=== PATIENT | female | born 1985 | race Caucasian/White ===

== ENCOUNTER 2017-01-30 09:41 | Inpatient (IN) | payer OTHER ==
[2017-01-30] MEDS ORDERED: LIDOCAINE HCL 50 ML VIAL PERI PRN (09:54)
[2017-01-30] MEDS ORDERED: RINGERS SOLUTION,LACTATED 1,000 ML IV ONE (09:54)
[2017-01-30] MEDS ORDERED: PENICILLIN G POTASSIUM 5 MILLIONUNT in DEXTROSE 5 % IN WATER 100 ML IV ONE ×2 (09:54)
[2017-01-30] MEDS ORDERED: ONDANSETRON HCL/PF 2 MG/ML VIAL IV PRN ×2 (09:54→12:40)
[2017-01-30] MEDS ORDERED: OXYTOCIN/DEXTROSE 5%-WATER 30 UNITS/500 ML BAG IV ONE ×2 (09:54→21:36)
[2017-01-30 10:11] LABS: Hematocrit 36.9 % (37.0-47.0); Hemoglobin 12.5 gm/dL (12.5-16.0); Mean Cell Volume 86.4 fl (78-100); Mean Corpuscular Hemoglobin 29.3 pg (27-31); Mean Corpuscular Hgb Conc 33.9 g/dl (32-36); Mean Platelet Volume 9.6 fl (6.0-9.5); Neutrophil % 75.5 % (42-75.0); Platelet Count 125 K/mm3 (150-450); Red Blood Count 4.27 M/mm3 (4.2-5.4); Red Cell Distribution Width 13.8 % (11.5-14.0); White Blood Count 9.3 K/mm3 (4.0-10.5)
[2017-01-30 10:30] LABS: Albumin * 2.7 gm/dl (3.4-5.0); Anion Gap 14.1 mmol/L (6.8-13.8); BUN/Creatinine Ratio 8.8 (9.0-21.6); Bilirubin, Total 0.4 mg/dL (0.0-1.1); Ca. Corrected For Albumin 9.3 mg/dL (8.4-10.2); Calcium * 8.6 mg/dL (7.9-10.9); Carbon Dioxide 21.6 mmol/L (24-32.6); Potassium 3.7 mmol/L (3.4-4.6); Total Protein 6.8 gm/dL (6.2-8.2)
[2017-01-30 10:38] LABS: Random Urine Total Protein 31.7 mg/dL (0-12)
[2017-01-30] MEDS: DEXTROSE 5%-LACTATED RINGERS 1,000 ML IV PRN ×2 (10:42→19:13)
[2017-01-30] MEDS ORDERED: NALOXONE HCL 1 MG/1 ML SYRG IV PRN (12:40)
[2017-01-30] MEDS ORDERED: BUPIVACAINE HCL/0.9 % NACL/PF 250 ML EP PRN (12:40)
[2017-01-30] MEDS ORDERED: fentaNYL CITRATE/PF 50 MCG/ML AMPUL IT SCH (12:45)
--- NOTE | 2017-01-30 13:33 | OR ---
Anesthesia Procedure Note - Anesthesia Procedure Note Narrative: Vital Signs - Last Taken Temp 35.4 C L 01/03/16 09:56 Pulse Resp BP 145/72 01/03/16 09:56 Pulse Ox 01/30/17 13:32 ANESTHESIA PROCEDURE NOTE Date of Procedure: 01/30/2017 Time of procedure: The 1314. Performed by: Hayden Valadez CRNA Account Collector: None. Preprocedure diagnosis: Active labor. Post procedure diagnosis: Same. Procedure: Insertion of labor epidural. Indications: The patient is a 31 -year-old multigravida female in active labor requesting labor epidural for pain management. Findings: See below. Details of the procedure: The patient was placed in a sitting position. Back was prepped with DuraPrep. Patient was then draped in a sterile fashion. Lidocaine 1% was infiltrated to the skin and subcutaneous tissues at the level of the L3 4 interspace. The epidural space was identified using a 18-gauge Tuohy needle with [id number] technique. 20 mcg fentanyl was given intrathecally using a 27 ga. spinal needle. Epidural catheter was inserted without difficulty. Negative test dose was elicited using 5 mL of 1.5% preservative-free lidocaine plus epinephrine 1 200,000. The epidural catheter was then taped and secured in place. EBL: Minimal. Fluids: N/A. Specimen: N/A. Post procedure condition: The patient tolerated the procedure well. No complications were noted. Thank you for this consultation. Lemus CRNA
[2017-01-30] MEDS: PENICILLIN G POTASSIUM 2.5 MILLIONUNT in DEXTROSE 5 % IN WATER 100 ML IV SCH ×4 (14:46→18:30)
--- NOTE | 2017-01-30 17:50 | PN ---
Subjective - Date and Time Seen Date: 01/30/17 Time: 17:43 Objective - Vitals Vitals: Last Vital Signs Temp 35.4 C L 01/03/16 09:56 Pulse Resp BP 145/72 01/03/16 09:56 Pulse Ox Patient comfortable with epidural Vital signs stable. Pitocin at 15 mu/min. FHT: 120 baseline, reassuring Contractions q 2-3 min Cervix: 5/50/-2, AROM-clear Impression: Intrauterine at 39-1/7 weeks induction of labor for preeclampsia. Group B strep carrier-status post 2 doses of antibiotic Plan: Continue present plan - Abnormal Lab Findings Abnormal Lab Findings: Abnormal Lab Results 01/30/17 01/30/17 01/30/17 Range/Units 09:30 10:04 10:04 Hct 36.9 L (37.0-47.0) % Plt Count 125 L (150-450) K/mm3 MPV 9.6 H (6.0-9.5) fl Immature Gran % (Auto) 1.00 H (0.001-0.429) % Immature Gran # (Auto) 0.09 H (0.000-0.0310) K/mm3 Neutrophils % 75.5 H (42-75.0) % Lymphocytes % 13.9 L (20-51) % Neutrophils # 7.0 H (1.3-6.0) K/mm3 Lymphocytes # 1.3 L (1.5-3.5) k/mm3 Carbon Dioxide 21.6 L (24-32.6) mmol/L Anion Gap 14.1 H (6.8-13.8) mmol/L Est GFR (Non-Af Amer) 133 H D (60-130) mL/min BUN/Creatinine Ratio 8.8 L (9.0-21.6) Random Glucose 114 H (70-110) mg/dL Albumin 2.7 L (3.4-5.0) gm/dl U Random Total Protein 31.7 H (0-12) mg/dL U [place] Prot/Creat Ratio 304 H (0-199) mg/gm Cauti Physician Documentation - Urinary Catheter Management Urethral (Arthur) Date of Insertion: 01/30/17 Time of Insertion: 13:40
--- NOTE | 2017-01-30 21:33 | OR ---
Operative Report - Dictated Report Narrative: Spontaneous vaginal delivery of viable female at 2110 on 01/30/2017 with Apgars 8 and 9, weighing 3467 g in [place] position. [Cord clamping delayed approximately 1 minute] Placenta delivered [complete, intact, with three vessel cord] Estimated blood loss: 100 mL Lacerations: [None] History for Definition: * The number of deliveries resulting in a live the patient experienced prior to current hospitalization * The previous delivery of live twins or any live multiple gestation is considered one live event. *If primagravida or nulliparous is documented select zero for the number of previous live births. Live Events: 2
[2017-01-30] MEDS ORDERED: BISACODYL 10 MG SUPP.RECT RC PRN (21:36)
[2017-01-30] MEDS ORDERED: GLYCERIN/WITCH HAZEL LEAF 40 APPL BOX TP PRN (21:36)
[2017-01-30] MEDS ORDERED: SENNOSIDES 8.6 MG TABLET PO PRN (21:36)
[2017-01-30] MEDS ORDERED: BENZOCAINE/MENTHOL 81 SPRAY CAN TP PRN (21:36)
[2017-01-30] MEDS ORDERED: HYDROCORTISONE 30 APPL TUBE TP PRN (21:36)
[2017-01-30] MEDS ORDERED: oxyCODONE HCL/ACETAMINOPHEN 1 TAB TABLET PO PRN (21:36)
[2017-01-30] MEDS ORDERED: ACETAMINOPHEN 500 MG TABLET PO ONE (21:47)
[2017-01-30] MEDS ORDERED: ACETAMINOPHEN 325 MG TABLET PO PRN (21:47)
[2017-01-30] MEDS: IBUPROFEN 800 MG TABLET PO PRN (23:42)
[2017-01-31] MEDS: oxyCODONE HCL/ACETAMINOPHEN 1 TAB TABLET PO PRN ×5 (04:06→20:37)
[2017-01-31] MEDS: IBUPROFEN 800 MG TABLET PO PRN ×3 (06:19→18:21)
[2017-01-31] MEDS: PRENATAL VIT#96/FERROUS FUM/FA 1 TAB TABLET PO SCH (08:45)
[2017-01-31] MEDS: DOCUSATE SODIUM 100 MG CAPSULE PO SCH ×2 (08:45→20:40)
--- NOTE | 2017-01-31 23:58 | PN ---
Subjective - Date and Time Seen Date: 01/31/17 Time: 23:57 Objective - Vitals Vitals: Last Vital Signs Temp 36.5 C 01/31/17 20:00 Pulse 79 01/31/17 20:00 Resp 14 01/31/17 20:00 BP 130/85 01/31/17 20:00 Pulse Ox 100 01/31/17 20:00 Patient denies complaints. Lochia wnl Abdomen - soft, nontender Uterus - firm, at umbilicus - 1 No calf tenderness Impression: day #1 - s/p spontaneous vaginal delivery. Preeclampsia- resolved. Plan: Continue routine care Cauti Physician Documentation - Urinary Catheter Management Urethral (Arthur) Date of Insertion: 01/30/17 Time of Insertion: 13:40
[2017-02-01] MEDS: IBUPROFEN 800 MG TABLET PO PRN ×2 (01:25→07:56)
[2017-02-01] MEDS: oxyCODONE HCL/ACETAMINOPHEN 1 TAB TABLET PO PRN (07:54)
[2017-02-01] MEDS: DOCUSATE SODIUM 100 MG CAPSULE PO SCH (07:54)
[2017-02-01] MEDS: PRENATAL VIT#96/FERROUS FUM/FA 1 TAB TABLET PO SCH (07:54)
[2017-02-01 09:07] VITALS: BP 121/87
--- NOTE | 2017-02-01 09:10 | PN ---
Subjective - Date and Time Seen Date: 02/01/17 Time: 09:09 Objective - Vitals Vitals: Last Vital Signs Temp 36.7 C 02/01/17 06:45 Pulse 76 02/01/17 06:45 Resp 20 02/01/17 06:45 BP 121/87 02/01/17 06:45 Pulse Ox 99 02/01/17 06:45 Patient denies complaints. Lochia wnl Abdomen - soft, nontender Uterus - firm, at umbilicus - 2 No calf tenderness Impression: day #2 - s/p spontaneous vaginal delivery. Preeclampsia- resolved Plan: Routine discharge instructions. Preeclampsia precautions. Follow-up in the office in 1 week for blood pressure check. Cauti Physician Documentation - Urinary Catheter Management Urethral (Arthur) Date of Insertion: 01/30/17 Time of Insertion: 13:40
== END 2017-02-01 13:50 | disposition home or self-care (01) | DRG 775 ==
LOC: OB 09:41 → MS 01-31 13:07
PROVIDERS: ADMIT Obstetrics & Gynecology; ATTEND Obstetrics & Gynecology
PROC: 10E0XZZ Delivery of Products of Conception, External Approach (ICD-10-PCS; principal; 2017-01-30)
PROC: 10907ZC Drainage of Amniotic Fluid, Therapeutic from Products of Conception, Via Natural or Artificial Opening (ICD-10-PCS; 2017-01-30)
PROC: 3E033VJ Introduction of Other Hormone into Peripheral Vein, Percutaneous Approach (ICD-10-PCS; 2017-01-30)
PROC: 4A1HXCZ Monitoring of Products of Conception, Cardiac Rate, External Approach (ICD-10-PCS; 2017-01-30)
PROC: 00HU33Z Insertion of Infusion Device into Spinal Canal, Percutaneous Approach (ICD-10-PCS; 2017-01-30)
DX: O13.4 Gestational [pregnancy-induced] hypertension without significant proteinuria, complicating childbirth (principal); O14.94 Unspecified pre-eclampsia, complicating childbirth; O99.824 Streptococcus B carrier state complicating childbirth; Z3A.39 39 weeks gestation of pregnancy; Z37.0 Single live birth